=== PATIENT | male | born 1950 | race Caucasian/White ===

== ENCOUNTER 2020-02-25 08:23 | Inpatient (IN) | payer MEDICARE, SELFPAY ==
[2020-02-25] VITALS (10 sets, daily range): BP systolic 109–140; BP diastolic 40–73; PULSE 62–79; RESP 18–34; TEMP 36.2–36.8; O2SAT 93–99; BMI 25.4
--- NOTE | ~2020-02-25 | US_ITS ---
EXAMINATION: US carotid duplex BI DATE: 02/25/2020 16:32 INDICATION: Stroke TECHNIQUE: Grayscale, color Doppler, and pulsed Doppler images of the cervical carotid arteries were obtained. The degree of vessel stenosis is placed in one of the following categories: normal, <50%, 5 0-69%, >=70% but less than near-occlusion, near-occlusion, or total occlusion. Note that percent sten osis relative to normal distal artery lumen diameter is indirectly measured from velocity measurement s as described by Errol, et al. Radiology 2003; 229:340-346. COMPARISON: None. FINDINGS: RIGHT: The right common carotid artery (CCA) peak systolic velocity (PSV) is 58 cm/s. The right internal car otid artery (ICA) PSV is 81 cm/s. The right ICA end-diastolic velocity (EDV) is 14 cm/s. The right IC A/CCA PSV ratio is 1.4. Grayscale and color Doppler images yield an estimate of <50% diameter reducti on from plaque in the ICA. The external carotid artery (ECA) PSV is 116 cm/s. There is antegrade flow in the right vertebral artery. LEFT: The left CCA PSV is 77 cm/s with high resistance waveform. The left ICA appears thrombosed with no de finitive internal flow on color Doppler. The ECA PSV is 132 cm/s. There is antegrade flow in the left vertebral artery. IMPRESSION: 1. <50% stenosis in the right internal carotid artery. 2. 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 Reviewed, dictated and finalized at location A.
--- NOTE | ~2020-02-25 | CT_ITS ---
EXAMINATION: CT brain wo con EXAM DATE: 02/25/2020 08:30 INDICATION: Slurred speech. Stroke. TECHNIQUE: Spiral CT of the head was performed without contrast. Axial, coronal and sagittal images were reviewed. The dose-length product (DLP) for this examination was 605.33 mGy-cm. The exposure w as tailored according to patient size, and iterative reconstruction (ASIR) was used as additional dos e reduction technique. There is no prior study for comparison. FINDINGS: There is small region of left frontal lobe matthews-white differentiation loss, could be an acu te infarction. Small old left parietal lobe infarction. No acute intracranial hemorrhage. No extra-ax ial collections or obstructive hydrocephalus. There is mild microangiopathy. No intracranial brain ma ss. Visualized sinuses, mastoid air cells are well aerated. Orbits are unremarkable. IMPRESSION: 1. Findings suspicious for small acute left frontal lobe infarction posteriorly. 2. Mild microangiopathy. 3. Old left parietal lobe infarction. As per stroke protocol, I called these results to emergency room, discussed with Moses Birmingham at 02/25/2020 08:35 CDT . Reviewed, dictated and finalized at location A. IMPRESSION: 1. Findings suspicious for small acute left frontal lobe infarction posteriorly . 2. Mild microangiopathy. 3. Old left parietal lobe infarction. As per stroke protocol, I called these results to emergency room, discussed wit jenni Lance DO at 02/25/2020 08:35 CDT .
--- NOTE | ~2020-02-25 | MR_ITS ---
EXAMINATION: MR brain/brain stem wo/w con DATE: 02/25/2020 13:15 INDICATION: Cerebrovascular accident. TECHNIQUE: Magnetic resonance imaging (MRI) of the brain and brainstem was performed without and with 15 mL MultiHance intravenous contrast. Sequences included sagittal and axial T1-weighted FSE, axial diffusion-weighted FS EPI, axial T2*-weighted GRE, axial T2-weighted FLAIR Propeller, and axial T2-we ighted Propeller. Postcontrast sequences included axial and coronal T1-weighted FSE. Apparent diffusi on coefficient (ADC) maps were created. COMPARISON: Head CT 02/25/2020 FINDINGS: There is an acute infarct in left frontoparietal region. There is an old infarct in left oc cipital lobe. There is a small area of cystic encephalomalacia in the left parietal lobe deep white m atter. There are scattered areas of nonspecific increased T2-weighted signal intensity in the cerebra l white matter and thang. There is no intracranial hemorrhage or abnormal mass lesion. The ventricles are normal in size. The orbits are normal. The paranasal sinuses are clear. The mastoid air cells are normal. There is loss of the normal flow void in left internal carotid artery. IMPRESSION: 1. Acute infarct in left frontoparietal region. 2. Old infarcts in the left parietal and occipital lobes. 3. Mild nonspecific cerebral white matter disease and pontine disease, which likely represents chroni c small vessel ischemic disease. 4. Loss of the normal flow void in left internal carotid artery, consistent with thrombosis versus sl ow flow. Consider neck CTA. Reviewed, dictated and finalized at location B. IMPRESSION: 1. Acute infarct in left frontoparietal region. 2. Old infarcts in the left parietal and occipital lobes. 3. Mild nonspecific cerebral white matter disease and pontine disease, which noemí crowley represents chronic small vessel ischemic disease. 4. Loss of the normal flow void in left internal carotid artery, consistent wit h thrombosis versus slow flow. Consider neck CTA.
--- NOTE | ~2020-02-25 | CT_ITS ---
EXAMINATION: CTA neck DATE: 02/26/2020 16:46 INDICATION: Left internal carotid artery occlusion on ultrasound. TECHNIQUE: Computed tomographic angiography (CTA) of the neck was performed with 100 mL Omnipaque-350 intravenous contrast. Multiplanar reconstructions and maximum intensity projection 3D-reconstruction s were created by the technologist on a separate workstation. The dose-length product was 547 mGy-cm. COMPARISON: None. FINDINGS: There is atherosclerotic plaque at the normal caliber aortic arch and at the origin of the great vess els with 20-30% stenosis at the origins of the innominate, left common carotid and left subclavian ar teries. Approximately 50% stenosis at the origins of the codominant left and right vertebral arteries . There is 10% stenosis of the right carotid bulb relative to normal distal artery lumen diameter (NA SCET criteria). There is complete occlusion of the left internal carotid artery at its origin. There is reconstitution of flow in the intracranial left internal carotid artery by collaterals with small amount of contrast first evident at the proximal aspect of the internal carotid canal at the beginnin g of the petrous portion of the artery. The left internal carotid artery appears smaller in caliber than the right at the level of the caroti d siphon where there is up to 50% stenosis due to atherosclerotic plaque in the left and less than 25 % on the right. Bilateral A1 and P1 segments are patent as well as a patent anterior communicating ar brittany. No significant atherosclerosis or stenosis along the intracranial bilateral vertebral arteries were the basilar artery at the bilateral P1 segments are patent. No definitive patent posterior commu nicator arteries identified on either the left or right. Intracranial cerebral arterial arborization appears symmetric. Postoperative change of prior median sternotomy and coronary artery bypass grafting. Dependent atelec tasis related to expiratory phase imaging in the upper lungs. There is also mild emphysema. Mild like ly reactive mediastinal lymphadenopathy. Bones are unremarkable. IMPRESSION: 1. 10% stenosis of the right carotid bulb relative to normal distal artery lumen diameter (NASCET cri teria). 2. 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 3. Additional atherosclerotic disease with 20-30% stenosis at the origins of the innominate, left com mon carotid and left subclavian arteries and 50% stenosis at the origins of the codominant left and r ight vertebral arteries. Reviewed, dictated and finalized at location A. IMPRESSION: 1. 10% stenosis of the right carotid bulb relative to normal distal artery lume n diameter (NASCET criteria). 2. 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 3. Additional atherosclerotic disease with 20-30% stenosis at the origins of th e innominate, left common carotid and left subclavian arteries and 50% stenosis at the origins of the codominant left and right vertebral arteries.
--- NOTE | ~2020-02-25 | XR_ITS ---
EXAMINATION: XR chest 1V portable DATE: 02/25/2020 09:06 INDICATION: Cerebrovascular accident. TECHNIQUE: A single frontal view of the chest was obtained. COMPARISON: Chest 2 views 08/14/2018, chest CT 10/27/2014 FINDINGS: There are mild airspace opacities in the mid and lower lung zones. There is chronic bluntin g of right lateral costophrenic angle. No pleural effusion or pneumothorax. The heart size is normal. There are coronary artery calcifications. IMPRESSION: 1. Mild airspace opacities in the mid and lower lung zones, consistent with atelectasis versus pneumo fiona. Reviewed, dictated and finalized at location B. IMPRESSION: 1. Mild airspace opacities in the mid and lower lung zones, consistent with ate lectasis versus pneumonia.
--- NOTE | 2020-02-25 08:26 | ECG_ITS ---
Measurements Intervals [place]our[place] Rate: 73 P: 48 AK: 158 QRS: 46 QRSD: 102 T: 29 QT: 461 QTc: 509 Interpretive Statements SINUS RHYTHM ATRIAL PREMATURE COMPLEX DELAYED PRECORDIAL R/S TRANSITION INFERIOR INFARCT, AGE INDETERMINATE BORDERLINE ST ABNORMALITY- LAT/HIGH LAT LEADS ABNORMAL ECG Electronically Signed On 02-25-2020 10:27:19 CDT by Fransico Ariza D.O.
--- NOTE | 2020-02-25 08:33 | ED.GENADULT ---
HPI - General Adult General Chief complaint: Suspected CVA Stated complaint: Poss CVA Source: RN notes reviewed History of Present Illness HPI narrative: Patient presents emergency department from work via EMS for aphasia. Patient went to work this morning and was noted to have difficulty speaking and EMS was called. Patient's last known normal was last night. Patient states that he believes it may have occurred after dinner he denies any numbness or tingling. He denies any fevers or chills chest pain shortness of breath or any other symptoms Related Data Allergies Allergy/AdvReac Type Severity Reaction Status Date / Time No Known Allergies Allergy Verified 02/25/20 08:49 Review of Systems Review of Systems: Narrative: Gen.: Denies fevers or chills Eyes: Denies eye pain or visual change ENT: Denies congestion Respiratory: Denies shortness of breath or cough CV: Denies chest pain or palpitations GI: Denies abdominal pain nausea, emesis or diarrhea Musculoskeletal: Denies back pain or muscle pain Neuro: See HPI Skin: Denies rash Except as documented, all other systems reviewed and negative [facility] Past Medical History Medical History (Updated 02/25/20 @ 09:46 by Humberto Lance DO) Coronary artery disease Family History Family History (Updated 01/26/16 @ 23:21 by DOCTOR UNKNOWN) Sibling Patient's sister is in good health Patient's brother is in good health Social History Social History (Updated 02/25/20 @ 08:35 by Humberto Lance DO) Smoking status: Current every day smoker Exam Narrative: Exam Narrative: APPEARANCE: No acute distress, nontoxic, resting in bed HEENT: Normocephalic, atraumatic, OMM, TMs clear bilaterally EYES: PERRL, EOMI NECK: Supple, nontender, full range of motion without pain, no meningismus RESPIRATORY: No respiratory distress, clear to auscultation bilaterally with no rhonchi wheezing or rales CARDIOVASCULAR: RRR s murmur ABDOMINAL: Soft, nontender, nondistended MUSCULOSKELETAL: Moves all extremities. No clubbing, cyanosis or edema. NEURO: A and O , following commands, expressive aphasia, cranial nerves II through XII grossly intact,muscle strength 5 out of 5 bilateral upper and lower extremities SKIN:: Warm, dry. Normal Color PSYCHIATRIC: Normal affect/mood Course Course Emergency Course: Called and discussed with Dr. Flowers at [facility]. Discussed patient's symptoms and stroke score. With patient's last known normal last night patient is a TPA candidate and with current stroke score not a intervention candidate Dr. Domingo presentation work-up. Agrees with consult in hospital Discussed with Dr. Eldridge presentation work-up he agrees with admission at this time States he took aspirin 81 mg and Plavix 75 mg this morning which is his normal medication. He denies having any chest pain today Discussed with patient and family results of workup and diagnosis. Discussed need for admission. Patient and family understand and agree to current treatment plan Vital Signs Vital signs: Vital Signs Temperature 98.3 F 02/25/20 08:40 Pulse Rate 69 02/25/20 08:40 Respiratory Rate 34 H 02/25/20 08:40 Blood Pressure 140/65 02/25/20 08:40 Pulse Oximetry 99 02/25/20 08:40 Temperature 98.3 F 02/25/20 08:40 Pulse Rate 62 02/25/20 09:05 Respiratory Rate 22 H 02/25/20 09:05 Blood Pressure 137/57 L 02/25/20 09:05 Pulse Oximetry 93 02/25/20 09:05 Medical Decision Making Vital Signs Vital Signs: Vital Signs Temperature 98.3 F 02/25/20 08:40 Pulse Rate 69 02/25/20 08:40 Respiratory Rate 34 H 02/25/20 08:40 Blood Pressure 140/65 02/25/20 08:40 Pulse Oximetry 99 02/25/20 08:40 Temperature 98.3 F 02/25/20 08:40 Pulse Rate 62 02/25/20 09:05 Respiratory Rate 22 H 02/25/20 09:05 Blood Pressure 137/57 L 02/25/20 09:05 Pulse Oximetry 93 02/25/20 09:05 Lab Data Result diagrams: 02/25/20 08:43 0
[2020-02-25 08:52] LABS: Glucose Point of Care 123 (65-105)
[2020-02-25 09:00] LABS: Basophils Absolute Auto 0.1 K/mm3 (0.0-0.1); Basophils Percent Auto 0.8 % (0.2-1.2); Eosinophils Absolute Auto 0.3 K/mm3 (0-0.3); Eosinophils Percent Auto 3.4 % (0-4.4); Hematocrit 47.7 % (42.0-52.0); Hemoglobin 15.4 g/dL (14.0-18.0); Immature Granulocyte Absolute 0.03 K/mm3 (0.00-0.031); Immature Granulocyte Percent A 0.4 % (0-0.5); Lymphocytes Absolute Auto 1.59 K/mm3 (0.9-3.2); Lymphocytes Percent Auto 18.7 % (18.3-44.2); Mean Corpuscular HGB Conc 32.3 g/dl (32-36); Mean Corpuscular Hemoglobin 29.1 pg (26-34); Mean Platelet Volume 10.7 fl (7.4-10.4); Monocytes Absolute Auto 0.8 K/mm3 (0.1-0.6); Monocytes Percent Auto 9.2 % (2.6-8.5); Neutrophils Absolute Auto 5.7 K/mm3 (1.3-6.7); Neutrophils Percent Auto 67.5 % (45.5-73.1); Platelet Count Result 243 k/mm3 (150-375); Red Cell Distribution Width 15.3 % (11.5-14.5); White Blood Count 8.5 K/mm3 (4.5-10.0)
--- NOTE | 2020-02-25 09:06 | PC.NURSE ---
Patients son #[phone] (Ramakrishna Gregorio)
[2020-02-25 09:07] LABS: INR 1.1; Prothrombin Time 13.9 Seconds (11.1-14.7)
[2020-02-25 09:08] LABS: Partial Thromboplastin Time 33.5 SECONDS (22.3-36.8)
[2020-02-25 09:12] LABS: Anion Gap 6 mmol/L (8-16); Blood Urea Nitrogen 16 mg/dL (9-20); Carbon Dioxide 29 mmol/L (22-30); Chloride 103 mmol/L (98-107); Estimated CRCL calculation 44 ml/min; Estimated Glomerular Filt Rate 50; Glucose 121 mg/dL (75-110); Potassium 3.8 mmol/L (3.4-5.0); Sodium 138 mmol/L (137-145)
[2020-02-25 09:33] LABS: Troponin I 0.115 ng/mL (0.000-0.034)
[2020-02-25 12:50] LABS: Troponin I 0.102 ng/mL (0.000-0.034)
--- NOTE | 2020-02-25 14:21 | PM.IMHP ---
H&P: HPI History of Present Illness Date/Time: 02/25/20 14:21 Chief complaint: CVA Narrative: Duane Gregorio is a 69 year old male Who has a history of coronary artery disease with 4 stents and four-vessel CABG in the past. The patient is currently on aspirin and Plavix. The patient came to the emergency room today with expressive aphasia. The patient went to work this morning and was told that his speech was abnormal. Some of his speech is clear be still having some problems with expressive aphasia. His last known normal was last night. He believes that it might have happened after dinner last night. He has no pronator drifting or any focal weakness. He has no facial drooping. He is swallowing without difficulty. The patient stated that he had an echo performed in the last 6 months at [facility]. The head CT was read as suspicious for small acute left frontal lobe infarction posteriorly. Mild micro angiopathy. Old left parietal lobe infarction. The patient took his aspirin and Plavix this morning. His MRI was read as acute infarction in left frontoparietal region. Old infarcts in the left parietal occipital lobes. Mild nonspecific cerebral white matter disease and pontine disease, which likely represents chronic small vessel ischemic disease. Loss of the normal flow void in the left internal carotid artery consistent with thrombosis versus slow flow. Consider neck CTa. Neurology has been consulted. Patient 1st troponin was 0.115 and the 2nd troponin was 0.102. He is not have any complaints of chest pain. Date of service 02/25/2020. Review of Systems Review of Systems: All systems reviewed & are unremarkable except as noted in HPI and below Constitutional: Constitutional: Reports as per HPI and Reports no additional constitutional complaints Eyes: Eyes: Reports as per HPI and Reports no additional eye complaints ENT: Reports system reviewed and no additional complaints, except as documented and Reports Normal hearing present Cardiovascular: Cardiovascular: Reports no additional cardiovascular complaints Respiratory: Respiratory: Reports no additional respiratory complaints and Reports no additional respiratory complaints Gastrointestinal: Gastrointestinal: Reports as per HPI and Reports no additional gastrointestinal complaints Musculoskeletal: Musculoskeletal: Reports no additional musculoskeletal complaints Integumentary/Breasts: Skin/Breast: Reports system reviewed and no additional complaints, except as docu and Reports as per HPI Neurologic: Reports system reviewed and no additional complaints, except as documented, Reports as per HPI and Reports Normal hearing present Psychiatric: Psychiatric: Reports no additional psychiatric complaints and Reports as per HPI Endocrine: Endocrine: Reports no additional endocrine complaints Hematologic/Lymphatic: Hematologic/Lymphatic: Reports no additional hematologic/lymphatic complaints Allergic/Immunologic: Allergic/Immunologic: Reports no additional allergic/immunologic complaints [facility] Past Medical History Medical History (Updated 02/25/20 @ 14:34 by Kari Martino NP) Aortic insufficiency Congestive heart failure last known EF was 30%. COPD (chronic obstructive pulmonary disease) Coronary artery disease Hyperlipidemia Hypertension Peripheral vascular disease Surgical History Surgical History (Updated 02/25/20 @ 14:34 by Kari Martino NP) History of heart artery stent for History of removal of pigmented skin lesion S/P CABG x 4 [facility] in [facility] Family History Family History (Updated 02/25/20 @ 14:36 by Kari Mratino NP) Sibling Patient's sister is in good health Patient's brother is in good health Acute myocardial infarction brother Mother Acute myocardial infarction Father Acute myocardial infarction Social History Social History (Updated 02/25/20 @ 14:37 by Kari Waldrop
[2020-02-25 15:56] LABS: Troponin I 0.096 ng/mL (0.000-0.034)
--- NOTE | 2020-02-25 16:38 | WPDNEURCNPN ---
Assessment and Plan Assessment and plan (1) COPD (chronic obstructive pulmonary disease): Code(s): J44.9 - Chronic obstructive pulmonary disease, unspecified Status: Chronic (2) Congestive heart failure: Code(s): I50.9 - Heart failure, unspecified Status: Chronic (3) Hyperlipidemia: Code(s): E78.5 - Hyperlipidemia, unspecified Status: Chronic (4) Hypertension: Code(s): I10 - Essential (primary) hypertension Status: Acute (5) Aortic insufficiency: Code(s): I35.1 - Nonrheumatic aortic (valve) insufficiency Status: Chronic (6) CVA (cerebral vascular accident): Code(s): I63.9 - Cerebral infarction, unspecified Status: Acute (7) Elevated troponin: Code(s): R79.89 - Other specified abnormal findings of blood chemistry Status: Acute (8) Coronary artery disease: Code(s): I25.10 - Atherosclerotic heart disease of [place] coronary artery without angina pectoris Status: Acute Additional Plan continue present medical management 1 wants to make sure that he does not have atrial fibrillation because of his cardiac history and somewhere down the line he may require a loop recorder or a cardiology consultation Consult date: 02/25/20 Time Seen: 16:00 HPI: Duane Gregorio is a 69 year old male who says he is left-handed however it is hard to discern because of his expressive aphasia how much he is really able to understand he was admitted because of the speech defect which has clearly improved he is able to express to a certain degree and comprehends more he denies any headache nausea vomiting chest pain shortness of breath he is able to tell me that never had stroke but there isn't evidence of a previous stroke how far the history is reliable is not sure he is able to move his arms legs quite well denies any headache nausea vomiting chest pain shortness of breath he has been evaluated by the staff command and control officer in the past and we are in process of getting the records Review of Systems Review of Systems: All systems reviewed & are unremarkable except as noted in HPI and below PMFSH Past Medical History Medical History Aortic insufficiency Congestive heart failure last known EF was 30%. COPD (chronic obstructive pulmonary disease) Coronary artery disease Hyperlipidemia Hypertension Peripheral vascular disease Surgical History Surgical History History of heart artery stent for History of removal of pigmented skin lesion S/P CABG x 4 [facility] in [facility] Family History Family History Sibling Patient's sister is in good health Patient's brother is in good health Acute myocardial infarction brother Mother Acute myocardial infarction Father Acute myocardial infarction Social History Social History Social History: patient has smoked a pack a cigarettes a day for 40+ years. He denies any alcohol use. He is x3 and he has 3 children. He does not have a durable power maintenance representative for healthcare. 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 He did use any marijuana or illicit drugs. He does desires to be a full code. Smoking packs per day: 1 Smoking cigarettes per day: 20.0 Years smoked: 60 Smoking pack-years: 60.00 Smoking status: Current every day smoker Alcohol intake: never Substance use: never Gender identity (if verbalized by the patient): Male Spiritual care concerns: No Meds Home Medications and Allergies Home Medications Medication Instructions Recorded Confirmed Type No Home Medications 02/25/20 02/25/20 History Allergies Allergy/AdvReac Type Severity Reaction Status Date / Time No Known Allergies Aller
--- NOTE | 2020-02-25 19:02 | ADMGEN ---
This patient, Duane Gregorio, was admitted to IMU Room 210-. Patient/family oriented to hospital policies and general routines including ID bracelet, bed and alarms, visiting hours, pain management, procedures, bathroom and other care routines, personal items, smoking policy, room service/diet, and visiting hours. Valuables list has been completed. Information on how to activate the Rapid Response Team has been discussed. Patient/Family are encouraged to report perceived risks to care and to ask questions if they do not understand what they are told or what they should do.
[2020-02-25] MEDS: CLOPIDOGREL BISULFATE 75 MG TABLET PO (20:21)
[2020-02-25] MEDS: ASPIRIN 81 MG ENTERIC TABLET PO (20:21)
[2020-02-26] VITALS (17 sets, daily range): BP systolic 145–164; BP diastolic 58–74; PULSE 62–97; RESP 18–24; TEMP 35.8–36.6; O2SAT 92–94
[2020-02-26 05:20] LABS: Basophils Absolute Auto 0.1 K/mm3 (0.0-0.1); Basophils Percent Auto 0.6 % (0.2-1.2); Eosinophils Absolute Auto 0.4 K/mm3 (0-0.3); Hematocrit 46.2 % (42.0-52.0); Immature Granulocyte Absolute 0.03 K/mm3 (0.00-0.031); Immature Granulocyte Percent A 0.3 % (0-0.5); Lymphocytes Percent Auto 17.9 % (18.3-44.2); Mean Corpuscular HGB Conc 32.5 g/dl (32-36); Mean Corpuscular Hemoglobin 29.2 pg (26-34); Mean Corpuscular Volume 89.9 fl (80-100); Mean Platelet Volume 11.2 fl (7.4-10.4); Monocytes Absolute Auto 0.8 K/mm3 (0.1-0.6); Monocytes Percent Auto 9.4 % (2.6-8.5); Neutrophils Absolute Auto 6.1 K/mm3 (1.3-6.7); Neutrophils Percent Auto 67.8 % (45.5-73.1); Platelet Count Result 215 k/mm3 (150-375); Red Blood Count 5.14 M/mm3 (4.6-6.20); Red Cell Distribution Width 15.1 % (11.5-14.5)
[2020-02-26 05:37] LABS: Alanine Aminotransferase 10 U/L (4-50); Albumin Level 3.6 g/dL (3.5-5.1); Alkaline Phosphatase 85 U/L (38-126); Anion Gap 6 mmol/L (8-16); Aspartate Amino Transferase 18 U/L (17-59); Bilirubin,Total 1.5 mg/dL (0.2-1.3); Blood Urea Nitrogen 17 mg/dL (9-20); Calcium 8.8 mg/dL (8.4-10.2); Carbon Dioxide 27 mmol/L (22-30); Chloride 103 mmol/L (98-107); Estimated CRCL calculation 47 ml/min; Estimated Glomerular Filt Rate 55; Glucose 88 mg/dL (75-110); Potassium 3.7 mmol/L (3.4-5.0); Sodium 136 mmol/L (137-145)
[2020-02-26] MEDS: ASPIRIN 81 MG ENTERIC TABLET PO (08:50)
[2020-02-26] MEDS: CLOPIDOGREL BISULFATE 75 MG TABLET PO (08:50)
--- NOTE | 2020-02-26 11:31 | WPDNEURCNPN ---
Assessment and Plan Assessment and plan (1) COPD (chronic obstructive pulmonary disease): Code(s): J44.9 - Chronic obstructive pulmonary disease, unspecified Status: Chronic (2) Peripheral vascular disease: Code(s): I73.9 - Peripheral vascular disease, unspecified Status: Chronic (3) Congestive heart failure: Code(s): I50.9 - Heart failure, unspecified Status: Chronic (4) Hyperlipidemia: Code(s): E78.5 - Hyperlipidemia, unspecified Status: Chronic (5) Hypertension: Code(s): I10 - Essential (primary) hypertension Status: Acute (6) CVA (cerebral vascular accident): Code(s): I63.9 - Cerebral infarction, unspecified Status: Acute (7) Elevated troponin: Code(s): R79.89 - Other specified abnormal findings of blood chemistry Status: Acute (8) Coronary artery disease: Code(s): I25.10 - Atherosclerotic heart disease of [place] coronary artery without angina pectoris Status: Acute (9) Aortic insufficiency: Code(s): I35.1 - Nonrheumatic aortic (valve) insufficiency Status: Chronic Additional Plan consider the echocardiogram and cardiology consultation for long-term recommendations Consult date: 02/26/20 Time Seen: 11:40 HPI: Duane Gregorio is a 69 year old male with history of dysphasia documented acute infarct in the left frontoparietal region on MRI along with the old infarcts in left parietal and occipital lobes as well and loss of the normal flow void in the left internal carotid artery consistent with thrombosis versus slow flow. Doppler study showing less than 50% stenosis in the right internal carotid artery with thrombose left internal carotid artery and no definite of internal flow on the color Doppler study INR of only 1.1 basic metabolic panel normal with sodium 136 platelet count of 200 and 15 Review of Systems Review of Systems: All systems reviewed & are unremarkable except as noted in HPI and below PMFSH Past Medical History Medical History Aortic insufficiency Congestive heart failure last known EF was 30%. COPD (chronic obstructive pulmonary disease) Coronary artery disease Hyperlipidemia Hypertension Peripheral vascular disease Surgical History Surgical History History of heart artery stent for History of removal of pigmented skin lesion S/P CABG x 4 [facility] in [facility] Family History Family History Sibling Patient's sister is in good health Patient's brother is in good health Acute myocardial infarction brother Mother Acute myocardial infarction Father Acute myocardial infarction Social History Social History Social History: patient has smoked a pack a cigarettes a day for 40+ years. He denies any alcohol use. He is x3 and he has 3 children. He does not have a durable power engraver for healthcare. 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 He did use any marijuana or illicit drugs. He does desires to be a full code. Smoking packs per day: 1 Smoking cigarettes per day: 20.0 Years smoked: 60 Smoking pack-years: 60.00 Smoking status: Current every day smoker Alcohol intake: never Substance use: never Gender identity (if verbalized by the patient): Male Spiritual care concerns: No Meds Home Medications and Allergies Home Medications Medication Instructions Recorded Confirmed Type No Home Medications 02/25/20 02/25/20 History Allergies Allergy/AdvReac Type Severity Reaction Status Date / Time No Known Allergies Allergy Verified 02/25/20 08:49 Vital Signs Vital Signs - 24 hr 02/25/20 16:00 02/25/20 18:00 02/25/20 19:45 Temperature
[2020-02-26] MEDS: FUROSEMIDE 40 MG TABLET PO (12:56)
[2020-02-26] MEDS: ALBUTEROL SULFATE NEB 2.5 MG/0.5 ML INH 5 MG INHALATION ×2 (15:12→20:33)
[2020-02-26] MEDS: FUROSEMIDE INJ 40 MG/4 ML VIAL IV PUSH (15:41)
--- NOTE | 2020-02-26 17:54 | PM.IMPN ---
Progress Note: A&P Assessment and Plan (1) CVA (cerebral vascular accident): Code(s): I63.9 - Cerebral infarction, unspecified Status: Acute Assessment and Plan: Patient had expressive aphasia on admission but has improved. speech therapy evaluation. . He has no focal weakness. He is already on aspirin and Plavix. He had his MRI completed which is mentioned above. MR scan as well as carotid Doppler revealed possible thrombus total versus subtotal occlusion of left internal carotid Will get CTA of carotids because if there is residual flow he would be a candidate for endarterectomy. (2) Aortic insufficiency: Code(s): I35.1 - Nonrheumatic aortic (valve) insufficiency Status: Chronic Assessment and Plan: Get records from [facility] for his last echo within the last 6 months if he has not had 1 that he will need a 1. and repeat echo here (3) Hypertension: Code(s): I10 - Essential (primary) hypertension Status: Acute Assessment and Plan: he lists amlodipine and we will have permissive hypertension initially with the CVA (4) Hyperlipidemia: Code(s): E78.5 - Hyperlipidemia, unspecified Status: Chronic Assessment and Plan: does not list any statin which he needs to be on (5) Congestive heart failure: Code(s): I50.9 - Heart failure, unspecified Status: Chronic Assessment and Plan: echo results and probably needs beta-nallely as well as Nick with diuretic (6) Peripheral vascular disease: Code(s): I73.9 - Peripheral vascular disease, unspecified Status: Chronic Assessment and Plan: Continue with home medications. (7) COPD (chronic obstructive pulmonary disease): Code(s): J44.9 - Chronic obstructive pulmonary disease, unspecified Status: Chronic Assessment and Plan: schedule updraft treatments (8) Elevated troponin: Code(s): R79.89 - Other specified abnormal findings of blood chemistry Status: Acute Assessment and Plan: Continue to trend. Could be related to his stroke. There are level. He does have a history of coronary artery disease with 4 stents and 4 vessel CABG. He is on Plavix and aspirin. will add beta-nallely and check echo (9) Coronary artery disease: Code(s): I25.10 - Atherosclerotic heart disease of [place] coronary artery without angina pectoris Status: Acute Assessment and Plan: as above aspirin Plavix, beta-nallely, and start statin Subjective Date/time seen: 02/26/20 17:54 Interval history: date of visit 02/25. 69-year-old hypertensive male with known coronary disease and congestive heart failure admitted with episode of aphasia. MR did reveal acute left frontal parietal infarct and he is feeling better with this a.m. with speech clearing and wants to go home. Has not been taking any aspirin at home nor any of his cardiac medications. Has had intermittent shortness of breath at home for which he takes p.r.n. furosemide Exam Narrative: Exam Narrative: blood pressure 164/74 pulse is 94 saturating 94% on room air pupil equal reactive to light sclera anicteric neck supple very faint left carotid bruit lungs clear CV regular rate rhythm abdomen is soft soft nontender extremities without edema distal pulses 1+ at best neuro alert cooperative rather flat affect with cranial nerves 2-12 are intact and no focal weaknesses speech appears fluid at present time Objective Data Vital Signs Vital Signs: Vital Signs - 24 hr 02/25/20 18:00 02/25/20 19:45 02/25/20 20:00 Temperature 36.5 C Pulse Rate 65 78 65 Respiratory Rate 20 Blood Pressure 109/40 L Pulse Oximetry 95 02/25/20 22:00 02/25/20 23:48 02/26/20 00:00 Temperature Pulse Rate 65 79 62 Respiratory Rate 20 Blood Pressure 140/65 Pulse Oximetry 95 02/26/20 02:00 02/26/20 03:57 02/26/20 04:00 Temperature 36.0 C L
[2020-02-26] MEDS: carvediloL 6.25 MG TABLET PO (20:41)
[2020-02-26] MEDS: ENOXAPARIN 40 MG/0.4 ML SYRINGE SUB-Q (20:41)
[2020-02-26] MEDS: ACETAMINOPHEN 325 MG TABLET 650 MG PO (23:58)
[2020-02-27] VITALS (11 sets, daily range): BP systolic 150–170; BP diastolic 54–62; PULSE 60–91; RESP 18–20; TEMP 36.4–36.6; O2SAT 73–96
[2020-02-27] MEDS: ALBUTEROL SULFATE NEB 2.5 MG/0.5 ML INH 5 MG INHALATION ×2 (02:48→08:42)
[2020-02-27 05:01] LABS: Basophils Absolute Auto 0.1 K/mm3 (0.0-0.1); Basophils Percent Auto 0.7 % (0.2-1.2); Eosinophils Absolute Auto 0.2 K/mm3 (0-0.3); Eosinophils Percent Auto 1.5 % (0-4.4); Hemoglobin 16.6 g/dL (14.0-18.0); Immature Granulocyte Absolute 0.04 K/mm3 (0.00-0.031); Immature Granulocyte Percent A 0.4 % (0-0.5); Lymphocytes Absolute Auto 1.73 K/mm3 (0.9-3.2); Mean Corpuscular HGB Conc 33.2 g/dl (32-36); Mean Corpuscular Hemoglobin 28.8 pg (26-34); Mean Corpuscular Volume 86.7 fl (80-100); Mean Platelet Volume 10.3 fl (7.4-10.4); Neutrophils Absolute Auto 7.2 K/mm3 (1.3-6.7); Neutrophils Percent Auto 70.4 % (45.5-73.1); Platelet Count Result 267 k/mm3 (150-375); Red Blood Count 5.77 M/mm3 (4.6-6.20); Red Cell Distribution Width 14.4 % (11.5-14.5); White Blood Count 10.2 K/mm3 (4.5-10.0)
[2020-02-27 05:26] LABS: Anion Gap 10 mmol/L (8-16); Blood Urea Nitrogen 23 mg/dL (9-20); Calcium 9.3 mg/dL (8.4-10.2); Carbon Dioxide 26 mmol/L (22-30); Chloride 99 mmol/L (98-107); Estimated CRCL calculation 44 ml/min; Estimated Glomerular Filt Rate 50; Glucose 97 mg/dL (75-110); Potassium 3.4 mmol/L (3.4-5.0); Sodium 135 mmol/L (137-145)
[2020-02-27] MEDS: ATORVASTATIN 40 MG TABLET PO (09:11)
[2020-02-27] MEDS: CLOPIDOGREL BISULFATE 75 MG TABLET PO (09:11)
[2020-02-27] MEDS: carvediloL 6.25 MG TABLET PO (09:11)
[2020-02-27] MEDS: ASPIRIN 81 MG ENTERIC TABLET PO (09:12)
[2020-02-27] MEDS: POTASSIUM CHLORIDE 20 MEQ TABLET 40 MEQ PO (09:12)
[2020-02-27] MEDS: ACETAMINOPHEN 325 MG TABLET 650 MG PO (09:14)
--- NOTE | 2020-03-03 07:52 | PM.DS ---
DS: Admitting Diagnosis Admitting Diagnosis Admitting Diagnosis: CVA DS: Discharge Diagnosis Discharge Diagnosis (1) CVA (cerebral vascular accident): Code(s): I63.9 - Cerebral infarction, unspecified Status: Acute Assessment and Plan: Patient had expressive aphasia on admission but minimal at d/c. . He has no focal weakness. He was already on aspirin and Plavix. He had his MRI completed which revealed acute frontal pariatel infarc on left . MR scan as well as carotid Doppler revealed possible thrombus versus subtotal occlusion of left internal carotid CTA of carotids revealed total occlusion with collateral flow. (2) Aortic insufficiency: Code(s): I35.1 - Nonrheumatic aortic (valve) insufficiency Status: Chronic Assessment and Plan: Get records from [facility] for his last echo within the last 6 months . 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 Daughter states he is non compliant in taking meds (6) Peripheral vascular disease: Code(s): I73.9 - Peripheral vascular disease, unspecified Status: Chronic Assessment and Plan: Continue with home medications. (7) COPD (chronic obstructive pulmonary disease): Code(s): J44.9 - Chronic obstructive pulmonary disease, unspecified Status: Chronic Assessment and Plan: updrafts while inpatient. Not an active problem, (8) Elevated troponin: Code(s): R79.89 - Other specified abnormal findings of blood chemistry Status: Acute Assessment and Plan: Could be related to his stroke. There are level. He does have a history of coronary artery disease with 4 stents and 4 vessel CABG. He is on Plavix and aspirin. add beta-nallely and statin (9) Coronary artery disease: Code(s): I25.10 - Atherosclerotic heart disease of [place] coronary artery without angina pectoris Status: Acute Assessment and Plan: as above aspirin Plavix, beta-nallely, and start statin DS: Summary Hospital Course Hospital Course: 69-year-old hypertensive male with known cerebral and coronary disease admitted with aphasia. Carotid Doppler suggested either thrombus or subtotal occlusion of left internal carotid. 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 By the time of discharge his aphasia symptoms had essentially all resolved. After discussion with his daughter she revealed that he is very noncompliant with medication. We added beta-nallely and a statin to his regime and encouraged him to follow-up with his refrigeration installer is. He relates that he recently had an echocardiogram done so none was repeated here , and I am sure he is a candidate for an CALLIE-inhibitor also Time Spent with Patient Time attestation: Total time spent providing and/or coordinating discharge services: 35 minutes Exam Narrative: Exam Narrative: condition on discharge blood pressure 150/54 pulse is 70 saturating 96% on room air lungs clear CV regular rate rhythm abdomen soft nontender no masses extremities without edema distal pulses 2+ neuro alert oriented x4 up in about and speech had almost totally returned to normal simply slower responses but no obvious aphasia Discharge Plan Discharge Attending
== END 2020-02-27 14:30 | disposition home or self-care (01) | DRG 66 ==
LOC: ANHED 09:46 → ANHIMU 11:39
PROVIDERS: Nurse Practitioner; Admitting Provider Family Medicine; Emergency Provider Emergency Medicine; PCP Registered Nurse; Visit Provider Internal Medicine
DX: I63.9 Cerebral infarction, unspecified (principal); R47.01 Aphasia; R29.703 NIHSS score 3; I73.9 Peripheral vascular disease, unspecified; E78.5 Hyperlipidemia, unspecified; I25.10 Atherosclerotic heart disease of native coronary artery without angina pectoris; J44.9 Chronic obstructive pulmonary disease, unspecified; I11.0 Hypertensive heart disease with heart failure; I50.9 Heart failure, unspecified; F17.210 Nicotine dependence, cigarettes, uncomplicated; I35.1 Nonrheumatic aortic (valve) insufficiency; Z95.1 Presence of aortocoronary bypass graft; Z95.5 Presence of coronary angioplasty implant and graft
CPT/HCPCS: 36415; 70450; 70498; 70553; 71045; 80048; 80053; 82948; 83605; 83735; 84443; 84484; 85025; 85610; 85730; 92523; 93005; 93880; 94640; 99285; A9270; J1650; J1940; Q9967